=== PATIENT | male | born 1990 | race Caucasian/White ===

== ENCOUNTER 2018-08-20 09:20 | Emergency (ER) | payer SELFPAY ==
[~2018-08-20] VITALS: Ht 182.9 cm; Wt 97.5 kg
--- NOTE | 2018-08-20 09:28 | NUR ---
Patient ambulated to bed 4. RN evaluating patient at bedside.
[2018-08-20 09:32] VITALS: BP 103/67
--- NOTE | 2018-08-20 09:36 | NUR ---
C/O LEFT EYE PAIN , REDNESS, YELLOWISH DISCHARGE X 2 DAYS. DENIES TRAUMA. PATIENT STATES PAIN OF 5/10 AT THIS TIME; VSS; PATIENT POSITIONED FOR COMFORT; HOB ELEVATED; BEDRAILS UP X2; BED DOWN. ER MD MADE AWARE OF PT STATUS.
--- NOTE | 2018-08-20 09:55 | NUR ---
Dr. Musa evaluating patient at bedside.
[2018-08-20 10:13] VITALS: BP 103/67
--- NOTE | 2018-08-20 10:13 | NUR ---
Patient discharged with v/s stable. Written and verbal after care instructions given and explained. Patient alert, oriented and verbalized understanding of instructions. Ambulatory with steady gait. All questions addressed prior to discharge. ID band removed. Patient advised to follow up with PMD. Rx of ERYTROMYCIN OINTMENT, AZITROMYCIN & CLARITIN given. Patient educated on indication of medication including possible reaction and side effects. Opportunity to ask questions provided and answered.
== END 2018-08-20 10:13 | disposition home or self-care (01) ==
LOC: MED 09:20
DX: H10.9 Unspecified conjunctivitis (principal); J03.90 Acute tonsillitis, unspecified; J06.9 Acute upper respiratory infection, unspecified; B96.89 Other specified bacterial agents as the cause of diseases classified elsewhere
CPT/HCPCS: 99283

== ENCOUNTER 2020-11-14 11:21 | Emergency (ER) | payer OTHER ==
[~2020-11-14] VITALS: Ht 177.8 cm; Wt 99.8 kg
[2020-11-14 11:29] VITALS: BP 100/69
--- NOTE | 2020-11-14 11:36 | NUR ---
Patient ambulated to bed 02 with steady/even gait.
--- NOTE | 2020-11-14 11:40 | NUR ---
30 y/o M from home c/o headache. Patient A&Ox4, ambulatory states headache behind Right eye and eyebrow; reports intermittent headache 5-6 months ago that became constant x 1 week. Patient states 10/10 to right eye/above R eyebrow, throbbing/pressure/constant headache, non-radiating. Patient states associated blurry vision. Denies N/V/D, dizziness, vertigo, hearing loss. Patient states headache is constant upon wakening in morning. Patient states he took Motrin 600mg this morning with relief. HR 103; other VSS. Bed locked in lowest position, side rails x 1, call light in reach. PMH/Sx/Meds: Denies TOMERA
[2020-11-14] MEDS ORDERED: METOCLOPRAMIDE 10 MG/2 ML INJ VIAL IM ONE (12:00)
--- NOTE | 2020-11-14 12:10 | NUR ---
Dr. Guthrie is evaluating patient at bedside.
--- NOTE | 2020-11-14 12:20 | NUR ---
Patient transported/ambulated by vtc technician via ambulating. Steady/even gait.
--- NOTE | 2020-11-14 12:28 | NUR ---
Patient returned from CT. Provided with water cups per request.
--- NOTE | 2020-11-14 12:45 | NUR ---
Patient states headache relief; denies any headache pain at this time. No nausea. VSS; respirations even/unlabored. All pt needs met at this time.
--- NOTE | 2020-11-14 12:48 | NUR ---
Dr. Guthrie is reevaluating patient at bedside.
[2020-11-14] MEDS ORDERED: AMOX-1000 PO (13:14)
[2020-11-14 13:20] VITALS: BP 103/72
--- NOTE | 2020-11-14 13:20 | NUR ---
Patient discharged with v/s stable. Written and verbal after care instructions given and explained. Patient alert, oriented and verbalized understanding of instructions. Ambulatory with steady gait. All questions addressed prior to discharge. ID band removed. Patient advised to follow up with PMD. Rx of Amoxicillin/Potassium Clav given. Patient educated on indication of medication including possible reaction and side effects. Opportunity to ask questions provided and answered.
== END 2020-11-14 13:20 | disposition home or self-care (01) ==
LOC: MED 11:21
DX: J32.9 Chronic sinusitis, unspecified (principal); Z79.899 Other long term (current) drug therapy
CPT/HCPCS: 70450; 96372; 99284; J2765

== ENCOUNTER 2021-01-15 21:26 | Emergency (ER) | payer OTHER ==
[~2021-01-15] VITALS: Ht 177.8 cm; Wt 104.3 kg
[~2021-01-15 21:26] MED LIST: AMOX-1000 PO
[2021-01-15 21:35] VITALS: BP 121/66
--- NOTE | 2021-01-15 21:38 | NUR ---
TO LOBBY A/W BED AMBULATORY
--- NOTE | 2021-01-15 21:45 | NUR ---
30 Y/O MALEPATIENT PRESENTS TO ED WITH LT FLANK PAIN. PT STATES "I HAVE A LEFT FLANK PAIN THAT STARTED TODAY. IT'S LIUKE A 10/10 LEFT FLANK PAIN THAT STARTED TODAY." DENIES N/V/D; SKIN IS PINK/WARM/DRY; AAOX4 WITH EVEN AND STEADY GAIT; LUNGS CLEAR BL; HR EVEN AND REGULAR; PT DENIES ANY FEVER, CP, SOB, OR COUGH AT THIS TIME; PATIENT STATES PAIN OF 10/10 AT THIS TIME; VSS; PATIENT POSITIONED FOR COMFORT; HOB ELEVATED; BEDRAILS UP X2; BED DOWN. ER MD MADE AWARE OF PT STATUS. NKA PMH: DENIES
[2021-01-15] MEDS ORDERED: KETOROLAC 30 MG/ML VIAL IVP ONE (23:30)
[2021-01-15] MEDS ORDERED: NACL 0.9% 1,000 ML IV ONE (23:30)
--- NOTE | 2021-01-15 23:35 | NUR ---
TO BED # 12 AMBULATORY
[2021-01-15 23:49] LABS: HEMATOCRIT 36.3 % (36-52); HEMOGLOBIN 12.2 g/dL (12.0-18.0); MEAN CORPUSCULAR HEMOGLOBIN 28 pg (27-31); MEAN CORPUSCULAR HGB CONC 34 g/dL (33-37); MEAN CORPUSCULAR VOLUME 84.6 fL (80-94); PLATELET COUNT (AUTO) 296 K/uL (140-450); RED BLOOD CELL COUNT(AUTO) 4.29 MIL/uL (4.20-6.10); RED CELL DISTRIBUTION WIDTH 13.9 % (11.6-13.7); WHITE BLOOD COUNT (AUTO) 3.5 K/uL (4.8-10.8)
--- NOTE | 2021-01-15 23:50 | NUR ---
PATIENT TAKEN TO RAD VIA W/C.
[2021-01-16 00:03] LABS: ALBUMIN 3.4 g/dL (3.4-5.0); ANION GAP 9.5 (8-16); CREATININE 1.1 mg/dL (0.6-1.3); POTASSIUM 3.5 mmol/L (3.5-5.1); TOTAL BILIRUBIN 0.5 mg/dL (0.0-1.0)
[2021-01-16 00:13] LABS: EOSINOPHILS % (MANUAL) 3 % (0-4); LYMPHOCYTES % (MANUAL) 59 % (20-46); MONOCYTES % (MANUAL) 19 % (5-12)
[2021-01-16] MEDS ORDERED: KETOROLAC 30 MG/ML VIAL ONE (00:36)
[2021-01-16 01:27] LABS: APPEARANCE,URINE CLEAR (CLEAR); BILIRUBIN,URINE NEGATIVE (NEGATIVE); BLOOD, URINE NEGATIVE (NEGATIVE); COLOR,URINE YELLOW (YELLOW); LEUKOCYTE ESTERASE ,URINE NEGATIVE (NEGATIVE); NITRITE, URINE NEGATIVE (NEGATIVE); UGLUCOSE NEGATIVE (NEGATIVE)
[2021-01-16 01:40] LABS: RBC,URINE 0-5 /HPF (0-5); WBC,URINE 0-5 /HPF (0-5)
--- NOTE | 2021-01-16 02:05 | NUR ---
YAZMIN GIVEN TO INFRASTRUCTURE SOFTWARE ENGINEER.
[2021-01-16] MEDS ORDERED: LEVO500T98 PO (02:40)
[2021-01-16 02:45] VITALS: BP 121/76
--- NOTE | 2021-01-16 02:45 | NUR ---
Patient discharged with v/s stable. Written and verbal after care instructions given and explained. Patient alert, oriented and verbalized understanding of instructions. Carried with steady gait. All questions addressed prior to discharge. ID band removed. Patient advised to follow up with PMD. Rx of LEVOFLOXACIN given. Patient educated on indication of medication including possible reaction and side effects. Opportunity to ask questions provided and answered.
== END 2021-01-16 02:45 | disposition home or self-care (01) ==
LOC: MED 21:26
DX: C80.1 Malignant (primary) neoplasm, unspecified (principal); Z20.822 Contact with and (suspected) exposure to COVID-19; Z79.899 Other long term (current) drug therapy
CPT/HCPCS: 36415; 74176; 80053; 81001; 85025; 87426; 96361; 96374; 99284; J1885; J7030

== ENCOUNTER 2021-01-18 10:05 | Emergency (ER) | payer OTHER ==
[~2021-01-18] VITALS: Ht 177.8 cm; Wt 106.6 kg
[~2021-01-18 10:05] MED LIST changes: +LEVO500T98 PO
[2021-01-18 10:28] VITALS: BP 108/60
--- NOTE | 2021-01-18 10:28 | NUR ---
PT TO WAIT IN LOBBY.
--- NOTE | 2021-01-18 13:05 | NUR ---
TO ED BED 1 - AMBULATORY.
[2021-01-18 13:54] VITALS: BP 111/62
--- NOTE | 2021-01-18 13:56 | NUR ---
Patient discharged with v/s stable. Written and verbal after care instructions given and explained. Patient alert, oriented and verbalized understanding of instructions. Ambulatory with steady gait. All questions addressed prior to discharge. ID band removed. Patient advised to follow up with PMD. Rx of NONE given. Patient educated on indication of medication including possible reaction and side effects. Opportunity to ask questions provided and answered.
== END 2021-01-18 13:56 | disposition home or self-care (01) ==
LOC: MED 10:05
DX: C76.2 Malignant neoplasm of abdomen (principal); F12.10 Cannabis abuse, uncomplicated
CPT/HCPCS: 71045; 81002; 99283

== ENCOUNTER 2021-04-21 10:34 | Emergency (ER) | payer OTHER ==
[~2021-04-21] VITALS: Ht 180.3 cm; Wt 104.3 kg
[~2021-04-21 10:34] MED LIST changes: +LEVO-315 PO; -LEVO500T98 PO
[2021-04-21 10:38] VITALS: BP 158/84
--- NOTE | 2021-04-21 10:48 | NUR ---
PT AMBULATED TO BED 10, STEADY GAIT
--- NOTE | 2021-04-21 10:52 | NUR ---
DR CONNELLY AT BEDSIDE EXAMINING PT
--- NOTE | 2021-04-21 10:55 | NUR ---
PATIENT PRESENTS TO ED WITH 30 Y/O MALE COMPLAINING OF CP X1 MO. PT STATES HE WAS SEEN AT PCP'S OFFICE FOR FOLLOW-UP AND WAS REFERED TO ER FOR CURRENT C/C. PT DROVE HIMSELF TO THE ER. DENIES N/V/D; SKIN IS PINK/WARM/DRY; AAOX4 WITH EVEN AND STEADY GAIT; LUNGS CLEAR BL; HR EVEN AND REGULAR; PT DENIES ANY FEVER, SOB, OR COUGH AT THIS TIME; NO PEDAL EDEMA, CYANOSIS, OR ACCESORY MUSCLE USE; PATIENT STATES PAIN OF 8/10 "SOMETIMES RADIATING TO STOMACH;" VSS; PATIENT POSITIONED FOR COMFORT; HOB ELEVATED; BEDRAILS UP X1; BED DOWN. ER MD MADE AWARE OF PT STATUS. HX: PNEUMONIA X1 MO AGO (PT STATES HE STOPPED TAKING MEDICATION AFTER THE PAIN STOPPED) NKDA MEDS: NONE
--- NOTE | 2021-04-21 11:01 | NUR ---
XRAY AT BEDSIDE
--- NOTE | 2021-04-21 11:01 | NUR ---
ER AT BEDSIDE
--- NOTE | 2021-04-21 11:02 | NUR ---
PT TAKEN TO XRAY VIA W/C
--- NOTE | 2021-04-21 11:09 | NUR ---
PT RETURNED FROM XRAY
--- NOTE | 2021-04-21 11:26 | NUR ---
LAB AT BEDSIDE
[2021-04-21 11:35] LABS: BASOPHILS # (AUTO) 0.1 K/uL (0.00-0.22); EOSINOPHILS # (AUTO) 0.4 K/uL (0-0.4); EOSINOPHILS % (AUTO) 4.4 % (0.0-4.0); HEMATOCRIT 35.3 % (36-52); HEMOGLOBIN 11.7 g/dL (12.0-18.0); LYMPHOCYTES # (AUTO) 2.2 K/uL (2.0-11.5); LYMPHOCYTES % (AUTO) 26.9 % (20.5-51.1); MEAN CORPUSCULAR HEMOGLOBIN 27 pg (27-31); MEAN CORPUSCULAR HGB CONC 33 g/dL (33-37); MEAN CORPUSCULAR VOLUME 81.9 fL (80-94); MONOCYTES # (AUTO) 0.9 K/uL (0.8-1.0); MONOCYTES % (AUTO) 11.6 % (1.7-9.3); NEUTROPHILS # (AUTO) 4.6 K/uL (1.8-7.7); NEUTROPHILS % (AUTO) 56.1 % (42.2-75.2); PLATELET COUNT (AUTO) 349 K/uL (140-450); RED BLOOD CELL COUNT(AUTO) 4.31 MIL/uL (4.20-6.10); RED CELL DISTRIBUTION WIDTH 14.2 % (11.6-13.7); WHITE BLOOD COUNT (AUTO) 8.2 K/uL (4.8-10.8)
[2021-04-21 11:59] LABS: ANION GAP 13.2 (8-16); CARBON DIOXIDE 25.8 mmol/L (21-32)
[2021-04-21 12:18] VITALS: BP 158/84
--- NOTE | 2021-04-21 12:18 | NUR ---
Patient discharged with v/s stable. Written and verbal after care instructions given and explained. Patient alert, oriented and verbalized understanding of instructions. Ambulatory with steady gait. All questions addressed prior to discharge. ID band removed. Patient advised to follow up with PMD. Opportunity to ask questions provided and answered.
== END 2021-04-21 12:18 | disposition home or self-care (01) ==
LOC: MED 10:34
DX: R07.89 Other chest pain (principal); R05.9 Cough, unspecified
CPT/HCPCS: 36415; 71046; 80048; 84484; 85025; 93005; 99285

== ENCOUNTER 2021-11-15 14:42 | Emergency (ER) | payer OTHER ==
[~2021-11-15] VITALS: Ht 180.3 cm; Wt 105.3 kg
[2021-11-15 15:40] VITALS: BP 117/84
[2021-11-15] MEDS ORDERED: OFLO5SOL27 LEFT EAR (15:55)
[2021-11-15] MEDS ORDERED: IBUP-1842 PO (15:55)
[2021-11-15 16:00] VITALS: BP 117/84
--- NOTE | 2021-11-15 16:00 | NUR ---
Patient discharged with v/s stable. Written and verbal after care instructions given and explained. Patient alert, oriented and verbalized understanding of instructions. Ambulatory with steady gait. All questions addressed prior to discharge. ID band removed. Patient advised to follow up with PMD. Rx of MOTRIN AND FLOXIN given. Patient educated on indication of medication including possible reaction and side effects. Opportunity to ask questions provided and answered.
== END 2021-11-15 16:00 | disposition home or self-care (01) ==
LOC: MED 14:42
DX: H60.91 Unspecified otitis externa, right ear (principal); Z79.899 Other long term (current) drug therapy
CPT/HCPCS: 99283

== ENCOUNTER 2022-01-19 17:23 | Emergency (ER) | payer OTHER ==
[~2022-01-19] VITALS: Ht 180.3 cm; Wt 109.3 kg
[~2022-01-19 17:23] MED LIST changes: +IBUP-1842 PO; -LEVO-315 PO; +LEVO-481 PO; +OFLO5SOL27 LEFT EAR
[2022-01-19 17:47] VITALS: BP 128/81
[2022-01-19] MEDS ORDERED: MECLIZINE 25 MG TAB PO ONE (18:50)
[2022-01-19] MEDS ORDERED: METOCLOPRAMIDE 10 MG/2 ML INJ VIAL IVP ONE (18:50)
[2022-01-19] MEDS ORDERED: NACL 0.9% 1,000 ML IV ONE (18:50)
[2022-01-19 19:23] LABS: BASOPHILS # (AUTO) 0.1 K/uL (0.00-0.22); EOSINOPHILS # (AUTO) 0.7 K/uL (0-0.4); EOSINOPHILS % (AUTO) 7.8 % (0.0-4.0); HEMATOCRIT 37.6 % (36-52); HEMOGLOBIN 12.8 g/dL (12.0-18.0); LYMPHOCYTES # (AUTO) 2.8 K/uL (2.0-11.5); MEAN CORPUSCULAR HEMOGLOBIN 28 pg (27-31); MEAN CORPUSCULAR HGB CONC 34 g/dL (33-37); MEAN CORPUSCULAR VOLUME 83.3 fL (80-94); MONOCYTES # (AUTO) 0.7 K/uL (0.8-1.0); MONOCYTES % (AUTO) 7.6 % (1.7-9.3); NEUTROPHILS # (AUTO) 4.3 K/uL (1.8-7.7); NEUTROPHILS % (AUTO) 50.6 % (42.2-75.2); PLATELET COUNT (AUTO) 325 K/uL (140-450); RED BLOOD CELL COUNT(AUTO) 4.52 MIL/uL (4.20-6.10); RED CELL DISTRIBUTION WIDTH 14.2 % (11.6-13.7); WHITE BLOOD COUNT (AUTO) 8.6 K/uL (4.8-10.8)
[2022-01-19 19:43] LABS: BARBITURATE, URINE NEGATIVE ng/ml (NEG <=200); BENZODIAZEPINE, URINE NEGATIVE ng/mL (NEG <=200); CANNABINOID, URINE POSITIVE ng/mL (NEG <=50); COCAINE, URINE NEGATIVE ng/mL (NEG <=300); OPIATE, URINE NEGATIVE ng/mL (NEG <=2000); PHENCYCLIDINE SCREEN,URINE NEGATIVE ng/mL (NEG <=25)
[2022-01-19 19:48] LABS: ALBUMIN 3.4 g/dL (3.4-5.0); ANION GAP 11.3 (8-16); ASPARTATE AMINOTRANSFERASE 23 U/L (15-37); CARBON DIOXIDE 29.5 mmol/L (21-32); CHLORIDE 104 mmol/L (98-107); CREATININE 1.1 mg/dL (0.6-1.3); GFR ARICAN-AMERICAN 100 mL/min (>90); GLUCOSE 117 mg/dL (74-106); POTASSIUM 3.8 mmol/L (3.5-5.1); SODIUM SERUM 141 mmol/L (136-145); TOTAL BILIRUBIN 0.3 mg/dL (0.0-1.0); UREA NITROGEN, BLOOD 14 mg/dL (7-18)
[2022-01-19 21:51] VITALS: BP 126/84
== END 2022-01-19 21:57 | disposition home or self-care (01) ==
LOC: MED 17:23
DX: R42 Dizziness and giddiness (principal); Z20.822 Contact with and (suspected) exposure to COVID-19; F19.20 Other psychoactive substance dependence, uncomplicated; F12.20 Cannabis dependence, uncomplicated; K21.9 Gastro-esophageal reflux disease without esophagitis; Z79.899 Other long term (current) drug therapy
CPT/HCPCS: 36415; 70450; 80053; 80305; 84484; 85025; 93005; 96361; 96374; 99285; G0482; J2765; J7030; J8597